=== PATIENT | male | born 1985 | race Caucasian/White ===

== ENCOUNTER 2017-08-27 20:11 | Emergency (ER) | payer MEDICAID | END 2017-08-28 17:50 | disposition home or self-care (01) | LOC: E/R 08-28 17:50 | DX: J20.9 Acute bronchitis, unspecified (principal); I50.9 Heart failure, unspecified | CPT/HCPCS: 99284; Z7502 ==

== ENCOUNTER 2017-09-10 10:35 | Emergency (ER) | payer MEDICAID | END 2017-09-10 20:20 | disposition home or self-care (01) | LOC: E/R 20:20 | DX: R05 Cough (principal); I50.9 Heart failure, unspecified | CPT/HCPCS: 99283; Z7502 ==

== ENCOUNTER 2017-09-12 02:44 | Inpatient (IN) | payer MEDICAID ==
[2017-09-12] MEDS: ACETAMINOPHEN 325 MG TAB PO (05:08)
[2017-09-12] MEDS: SOD CHLORIDE 0.9% 500 ML IV (05:09)
[2017-09-12] MEDS: CEFTRIAXONE 1 GM/50 ML (PMX) 50 ML IVPB (05:09)
[2017-09-12 05:35] LABS: ADD MAN DIFF? NO
[2017-09-12] MEDS: AZITHROMYCIN 500MG/NS (PMX) 250 ML IV (05:36)
[2017-09-12 05:39] LABS: WHITE BLOOD COUNT 12.7 10^3/ul (4.8-10.8)
[2017-09-12 05:39] LABS: BASOPHIL # 0.1 10^3/ul (0.0-0.1); BASOPHILS % 0.4 % (0.0-2.0); EOSINOPHILS # 0.1 10^3/ul (0.0-0.5); EOSINOPHILS % 0.6 % (0.0-7.0); HEMATOCRIT 46.1 % (42.0-52.0); HEMOGLOBIN 15.2 g/dl (14.0-18.0); LYMPHOCYTES # 1.7 10^3/ul (0.8-2.9); LYMPHOCYTES % 13.4 % (15.0-51.0); MEAN CORPUSCULAR HEMOGLOBIN 31.7 pg (29.0-33.0); MEAN CORPUSCULAR VOLUME 96.2 fl (82.0-101.0); MEAN PLATELET VOLUME 10.1 fl (7.4-10.4); MONOCYTE # 1.5 10^3/ul (0.3-0.9); MONOCYTES % 11.8 % (0.0-11.0); NEUTROPHIL # 9.4 10^3/ul (1.6-7.5); NEUTROPHILS % 73.4 % (39.0-77.0); PLATELET COUNT 235 10^3/UL (140-415); RED BLOOD COUNT 4.79 10^6/ul (4.70-6.10); RED CELL DISTRIBUTION WIDTH 13.5 % (11.5-14.5)
[2017-09-12 06:05] LABS: ALANINE AMINOTRANSFERASE 42 IU/L (13-69); ALBUMIN 4.3 g/dl (3.3-4.9); ALBUMIN/GLOBULIN RATIO 1.34; ALKALINE PHOSPHATASE 113 IU/L (42-121); ANION GAP 14 (8-16); ASPARTATE AMINO TRANSFERASE 37 IU/L (15-46); BILIRUBIN,INDIRECT 0.7 mg/dl (0-1.1); BILIRUBIN,TOTAL 0.7 mg/dl (0.2-1.3); BLOOD UREA NITROGEN 15 mg/dl (7-20); CALCIUM 9.2 mg/dl (8.4-10.2); CARBON DIOXIDE 31 mmol/L (21-31); CHLORIDE 98 mmol/L (97-110); CREATININE 1.06 mg/dl (0.61-1.24); GLUCOSE 107 mg/dl (70-220); POTASSIUM 3.7 mmol/L (3.5-5.1); SODIUM 139 mmol/L (135-144); TOTAL PROTEIN 7.5 g/dl (6.1-8.1)
[2017-09-12 06:06] LABS: LACTIC ACID 1.5 mmol/L (0.5-2.0)
[2017-09-12 06:10] LABS: INR 0.96; PROTIME 12.9 Sec (11.9-14.9)
[2017-09-12 06:11] LABS: PARTIAL THROMBOPLASTIN TIME 27.3 Sec (25.0-35.0)
[2017-09-12] MEDS ORDERED: ACETAMINOPHEN 325 MG TAB PO ×2 (07:00→07:30)
[2017-09-12] MEDS ORDERED: ONDANSETRON 4 MG INJ IV (07:30)
[2017-09-12] MEDS ORDERED: MAGNESIUM HYDROXIDE 30ML CUP PO (07:30)
[2017-09-12] MEDS ORDERED: NA PHOSPHATE/BIPHOS 133 ML ENEMA PR (07:30)
[2017-09-12] MEDS ORDERED: ALBUTEROL/IPRATROPIUM (NEB) 3 ML AMP HHN ×2 (07:30→11:00)
[2017-09-12] MEDS ORDERED: LORAZEPAM 2 MG INJ IV (07:30)
[2017-09-12] MEDS ORDERED: NACL 0.9% 3 ML SYG IV (07:30)
[2017-09-12] MEDS ORDERED: hydrALAzine 20 MG INJ IV (07:30)
[2017-09-12] MEDS ORDERED: VANCOMYCIN IV PER PHARMACY XX (07:30)
[2017-09-12] MEDS ORDERED: NITROGLYCERIN (SL) 0.4 MG TAB SL (07:30)
[2017-09-12] MEDS ORDERED: HYDROCODONE/APAP (5/325) TAB PO (07:30)
[2017-09-12] MEDS: ALBUTEROL 0.083% (NEB) 2.5 MG/3 ML AMP NEB (08:10)
[2017-09-12] MEDS: ONDANSETRON 4 MG INJ IV (08:34)
[2017-09-12] MEDS: morphine 2 MG INJ IV (08:35)
[2017-09-12 10:27] LABS: FREE T4 (FREE THYROXINE) 1.06 ng/dl (0.79-2.35)
[2017-09-12] MEDS: SOD CHLORIDE 0.45% 1,000 ML IV (10:48)
[2017-09-12] MEDS: HEPARIN 5,000 UNIT/0.5 ML VIAL SC ×2 (10:53→20:10)
[2017-09-12 11:28] LABS: LACTIC ACID 1.3 mmol/L (0.5-2.0)
[2017-09-12] MEDS: FLUTICASONE 0.05% 16 GM NAS SPRAY NASAL (12:10)
[2017-09-12] MEDS: PANTOPRAZOLE (EC) 40 MG TAB PO (12:10)
[2017-09-12] MEDS: IBUPROFEN 600 MG TAB PO ×3 (12:10→23:22)
[2017-09-12] MEDS: FUROSEMIDE 40 MG INJ IV (12:11)
[2017-09-12] MEDS: PIPER-TAZO 3.375 GM IV (PMX) 100 ML IVPB ×3 (12:13→23:20)
[2017-09-12 12:21] LABS: LACTIC ACID 1.2 mmol/L (0.5-2.0)
[2017-09-12 12:34] LABS: B-TYPE NATRIURETIC PEPTIDE 2300 PG/ML (0-125)
[2017-09-12] MEDS: VANCOMYCIN 1 GM 250 ML IVPB ×2 (16:31→17:00)
[2017-09-13] MEDS: VANCOMYCIN 1 GM 250 ML IVPB ×2 (01:21→11:00)
[2017-09-13] MEDS: IBUPROFEN 600 MG TAB PO ×4 (05:35→23:45)
[2017-09-13] MEDS: PIPER-TAZO 3.375 GM IV (PMX) 100 ML IVPB ×2 (05:35→12:31)
[2017-09-13] MEDS: PANTOPRAZOLE (EC) 40 MG TAB PO (05:35)
[2017-09-13] MEDS: FLUTICASONE 0.05% 16 GM NAS SPRAY NASAL (09:28)
[2017-09-13] MEDS: FUROSEMIDE 40 MG INJ IV (09:28)
[2017-09-13] MEDS: DOCUSATE SODIUM 100 MG CAP PO (09:28)
[2017-09-13] MEDS: BENAZEPRIL 20 MG TAB PO (09:28)
[2017-09-13 09:29] LABS: ADD MAN DIFF? NO
[2017-09-13 09:34] LABS: BASOPHILS % 0.4 % (0.0-2.0); EOSINOPHILS # 0.3 10^3/ul (0.0-0.5); EOSINOPHILS % 3.4 % (0.0-7.0); HEMATOCRIT 45.8 % (42.0-52.0); HEMOGLOBIN 14.9 g/dl (14.0-18.0); LYMPHOCYTES # 1.1 10^3/ul (0.8-2.9); MEAN CORPUSCULAR HEMOGLOBIN 31.4 pg (29.0-33.0); MEAN CORPUSCULAR HGB CONC 32.5 g/dl (32.0-37.0); MEAN CORPUSCULAR VOLUME 96.4 fl (82.0-101.0); MEAN PLATELET VOLUME 10.3 fl (7.4-10.4); MONOCYTES % 9.7 % (0.0-11.0); NEUTROPHIL # 7.3 10^3/ul (1.6-7.5); NEUTROPHILS % 75.2 % (39.0-77.0); PLATELET COUNT 203 10^3/UL (140-415); RED BLOOD COUNT 4.75 10^6/ul (4.70-6.10); RED CELL DISTRIBUTION WIDTH 13.5 % (11.5-14.5)
[2017-09-13 09:34] LABS: WHITE BLOOD COUNT 9.8 10^3/ul (4.8-10.8)
[2017-09-13] MEDS: HEPARIN 5,000 UNIT/0.5 ML VIAL SC ×2 (09:36→20:21)
[2017-09-13] MEDS: GUAIFENESIN/DM 5ML CUP PO (09:36)
[2017-09-13 09:50] LABS: HEMOGLOBIN A1C 5.6 % (0-5.9)
[2017-09-13 10:00] LABS: CHOL/HDL RATIO 3.7 RATIO; HDL CHOLESTEROL 43 mg/dl (28-63); LDL CHOLESTEROL,CALCULATED 104 mg/dl; TRIGLYCERIDES 66 mg/dl (0-149)
[2017-09-13 10:00] LABS: CHOLESTEROL 160 mg/dl (100-200)
[2017-09-13 10:31] LABS: THYROID STIMULATING HORMONE 0.366 MIU/L (0.465-4.680)
[2017-09-13 11:20] LABS: ANION GAP 12 (8-16); BLOOD UREA NITROGEN 15 mg/dl (7-20); CALCIUM 9.2 mg/dl (8.4-10.2); CARBON DIOXIDE 27 mmol/L (21-31); CHLORIDE 105 mmol/L (97-110); CREATININE 0.89 mg/dl (0.61-1.24); GLUCOSE 125 mg/dl (70-220); MAGNESIUM 1.9 mg/dl (1.7-2.5); PHOSPHORUS 2.6 mg/dl (2.5-4.9); POTASSIUM 4.1 mmol/L (3.5-5.1); SODIUM 140 mmol/L (135-144)
[2017-09-13] MEDS: INFLUENZA VIRUS VACCINE 0.5 ML SYG IM* (12:35)
[2017-09-13] MEDS: FUROSEMIDE 40 MG TAB PO (20:06)
[2017-09-14] MEDS: IBUPROFEN 600 MG TAB PO ×4 (05:10→23:16)
[2017-09-14] MEDS: FUROSEMIDE 40 MG TAB PO ×2 (05:10→17:47)
[2017-09-14] MEDS ORDERED: FUROSEMIDE 40 MG INJ IV (06:00)
[2017-09-14 08:08] LABS: ADD MAN DIFF? NO
[2017-09-14 08:28] LABS: WHITE BLOOD COUNT 4.4 10^3/ul (4.8-10.8)
[2017-09-14 08:28] LABS: BASOPHILS % 0.7 % (0.0-2.0); EOSINOPHILS # 0.3 10^3/ul (0.0-0.5); EOSINOPHILS % 7.4 % (0.0-7.0); HEMATOCRIT 46.3 % (42.0-52.0); HEMOGLOBIN 15.2 g/dl (14.0-18.0); LYMPHOCYTES # 1.5 10^3/ul (0.8-2.9); LYMPHOCYTES % 33.3 % (15.0-51.0); MEAN CORPUSCULAR HEMOGLOBIN 31.3 pg (29.0-33.0); MEAN CORPUSCULAR HGB CONC 32.8 g/dl (32.0-37.0); MEAN CORPUSCULAR VOLUME 95.5 fl (82.0-101.0); MEAN PLATELET VOLUME 10.2 fl (7.4-10.4); MONOCYTE # 0.8 10^3/ul (0.3-0.9); MONOCYTES % 17.1 % (0.0-11.0); NEUTROPHIL # 1.8 10^3/ul (1.6-7.5); PLATELET COUNT 212 10^3/UL (140-415); RED BLOOD COUNT 4.85 10^6/ul (4.70-6.10); RED CELL DISTRIBUTION WIDTH 13.7 % (11.5-14.5)
[2017-09-14 08:43] LABS: ANION GAP 14 (8-16); BLOOD UREA NITROGEN 15 mg/dl (7-20); CARBON DIOXIDE 31 mmol/L (21-31); CHLORIDE 101 mmol/L (97-110); CREATININE 0.85 mg/dl (0.61-1.24); GLUCOSE 85 mg/dl (70-220); POTASSIUM 3.5 mmol/L (3.5-5.1); SODIUM 142 mmol/L (135-144)
[2017-09-14 08:44] LABS: PHOSPHORUS 2.8 mg/dl (2.5-4.9)
[2017-09-14 08:44] LABS: MAGNESIUM 1.8 mg/dl (1.7-2.5)
[2017-09-14] MEDS: BENAZEPRIL 20 MG TAB PO (08:55)
[2017-09-14] MEDS: FLUTICASONE 0.05% 16 GM NAS SPRAY NASAL (08:55)
[2017-09-14] MEDS: HEPARIN 5,000 UNIT/0.5 ML VIAL SC ×2 (08:57→20:13)
[2017-09-14] MEDS: GUAIFENESIN/DM 5ML CUP PO (17:47)
[2017-09-15] MEDS: FUROSEMIDE 40 MG TAB PO (05:03)
[2017-09-15] MEDS: IBUPROFEN 600 MG TAB PO (05:03)
[2017-09-15] MEDS: HEPARIN 5,000 UNIT/0.5 ML VIAL SC (09:00)
[2017-09-15] MEDS: FLUTICASONE 0.05% 16 GM NAS SPRAY NASAL (09:10)
[2017-09-15] MEDS: BENAZEPRIL 20 MG TAB PO (09:10)
[2017-09-15] MEDS: GUAIFENESIN/DM 5ML CUP PO (09:15)
[2017-09-15 09:42] LABS: ADD MAN DIFF? NO
[2017-09-15 09:49] LABS: BASOPHILS % 0.7 % (0.0-2.0); EOSINOPHILS # 0.3 10^3/ul (0.0-0.5); EOSINOPHILS % 6.3 % (0.0-7.0); HEMATOCRIT 48.2 % (42.0-52.0); LYMPHOCYTES # 1.5 10^3/ul (0.8-2.9); LYMPHOCYTES % 37.3 % (15.0-51.0); MEAN CORPUSCULAR HEMOGLOBIN 31.7 pg (29.0-33.0); MEAN CORPUSCULAR HGB CONC 33.2 g/dl (32.0-37.0); MEAN CORPUSCULAR VOLUME 95.6 fl (82.0-101.0); MEAN PLATELET VOLUME 10.4 fl (7.4-10.4); MONOCYTE # 0.6 10^3/ul (0.3-0.9); MONOCYTES % 13.4 % (0.0-11.0); NEUTROPHIL # 1.7 10^3/ul (1.6-7.5); NEUTROPHILS % 41.8 % (39.0-77.0); PLATELET COUNT 245 10^3/UL (140-415); RED BLOOD COUNT 5.04 10^6/ul (4.70-6.10); RED CELL DISTRIBUTION WIDTH 13.2 % (11.5-14.5)
[2017-09-15 09:49] LABS: WHITE BLOOD COUNT 4.1 10^3/ul (4.8-10.8)
[2017-09-15 10:07] LABS: PHOSPHORUS 3.1 mg/dl (2.5-4.9)
[2017-09-15 10:07] LABS: MAGNESIUM 1.7 mg/dl (1.7-2.5)
[2017-09-15 10:10] LABS: ANION GAP 12 (8-16); BLOOD UREA NITROGEN 17 mg/dl (7-20); CALCIUM 9.3 mg/dl (8.4-10.2); CARBON DIOXIDE 30 mmol/L (21-31); CHLORIDE 102 mmol/L (97-110); GLUCOSE 85 mg/dl (70-220); POTASSIUM 3.9 mmol/L (3.5-5.1); SODIUM 140 mmol/L (135-144)
== END 2017-09-15 12:51 | disposition home or self-care (01) | DRG 152 ==
LOC: MS4 09:13 → E/R 02:44 → MS4 06:56
DX: J06.9 Acute upper respiratory infection, unspecified (principal); I50.23 Acute on chronic systolic (congestive) heart failure; I11.0 Hypertensive heart disease with heart failure; E05.80 Other thyrotoxicosis without thyrotoxic crisis or storm; F15.11 Other stimulant abuse, in remission; I25.5 Ischemic cardiomyopathy; J40 Bronchitis, not specified as acute or chronic; Z87.891 Personal history of nicotine dependence
CPT/HCPCS: 36415; 71045; 80048; 80053; 80061; 83036; 83605; 83735; 83880; 84100; 84439; 84443; 84484; 85025; 85610; 85730; 87040; 87400; 90686; 93005; 93306; 94664; 96374; 96375; 99291-25; G0378

== ENCOUNTER 2018-06-20 19:32 | Emergency (ER) | payer MEDICAID ==
[2018-06-20 21:03] LABS: ADD MAN DIFF? NO
[2018-06-20 21:04] LABS: BASOPHILS % 0.5 % (0.0-2.0); EOSINOPHILS # 0.1 10^3/ul (0.0-0.5); EOSINOPHILS % 1.4 % (0.0-7.0); HEMATOCRIT 41.6 % (42.0-52.0); HEMOGLOBIN 14.1 g/dl (14.0-18.0); LYMPHOCYTES # 1.5 10^3/ul (0.8-2.9); LYMPHOCYTES % 23.1 % (15.0-51.0); MEAN CORPUSCULAR HEMOGLOBIN 33.1 pg (29.0-33.0); MEAN CORPUSCULAR HGB CONC 33.9 g/dl (32.0-37.0); MEAN CORPUSCULAR VOLUME 97.7 fl (82.0-101.0); MEAN PLATELET VOLUME 9.4 fl (7.4-10.4); MONOCYTE # 0.8 10^3/ul (0.3-0.9); MONOCYTES % 11.4 % (0.0-11.0); NEUTROPHIL # 4.2 10^3/ul (1.6-7.5); NEUTROPHILS % 63.1 % (39.0-77.0); PLATELET COUNT 240 10^3/UL (140-415); RED BLOOD COUNT 4.26 10^6/ul (4.70-6.10); RED CELL DISTRIBUTION WIDTH 13.5 % (11.5-14.5)
[2018-06-20 21:04] LABS: WHITE BLOOD COUNT 6.6 10^3/ul (4.8-10.8)
[2018-06-20 21:11] LABS: ADD UMIC YES; UR ASCORBIC ACID NEGATIVE (NEGATIVE); UR BILIRUBIN (Dip) NEGATIVE (NEGATIVE); UR BLOOD (Dip) NEGATIVE (NEGATIVE); UR CLARITY CLEAR (CLEAR); UR COLOR YELLOW (YELLOW); UR GLUCOSE (Dip) NEGATIVE (NEGATIVE); UR KETONES (Dip) NEGATIVE (NEGATIVE); UR LEUKOCYTE ESTERASE (Dip) NEGATIVE Leu/ul (NEGATIVE); UR MUCUS FEW /HPF (NONE SEEN); UR NITRITE (Dip) NEGATIVE (NEGATIVE); UR RBC 0 /HPF (0-5); UR SPECIFIC GRAVITY (Dip) 1.013 (1.003-1.030); UR TOTAL PROTEIN (Dip) 2+ mg/dl (NEGATIVE); UR UROBILINOGEN (Dip) 2+ mg/dL (NEGATIVE); UR WBC 1 /HPF (0-5)
[2018-06-20 21:22] LABS: ALANINE AMINOTRANSFERASE 61 IU/L (13-69); ALBUMIN 3.7 g/dl (3.3-4.9); ALBUMIN/GLOBULIN RATIO 1.32; ALKALINE PHOSPHATASE 93 IU/L (42-121); ANION GAP 9 (5-13); ASPARTATE AMINO TRANSFERASE 57 IU/L (15-46); BILIRUBIN,INDIRECT 1.7 mg/dl (0-1.1); BILIRUBIN,TOTAL 1.7 mg/dl (0.2-1.3); BLOOD UREA NITROGEN 17 mg/dl (7-20); CALCIUM 8.8 mg/dl (8.4-10.2); CARBON DIOXIDE 24 mmol/L (21-31); CHLORIDE 102 mmol/L (97-110); Estimated GFR > 60 mL/min (>60); GLUCOSE 95 mg/dl (70-220); LIPASE 19 U/L (23-300); SODIUM 135 mmol/L (135-144); TOTAL PROTEIN 6.5 g/dl (6.1-8.1)
[2018-06-20 21:33] LABS: TROPONIN-I 0.018 ng/ml (0.000-0.120)
[2018-06-20] MEDS: FUROSEMIDE 40 MG INJ IV (22:58)
== END 2018-06-21 00:17 | disposition home or self-care (01) ==
LOC: E/R 06-21 00:17
DX: I50.23 Acute on chronic systolic (congestive) heart failure (principal); R40.2142 Coma scale, eyes open, spontaneous, at arrival to emergency department; R40.2252 Coma scale, best verbal response, oriented, at arrival to emergency department; R40.2362 Coma scale, best motor response, obeys commands, at arrival to emergency department; Z87.891 Personal history of nicotine dependence
CPT/HCPCS: 36415; 71045; 80053; 81001; 82962; 83690; 84484; 85025; 93005; 96374; 99285-25

== ENCOUNTER 2018-07-24 14:55 | Emergency (ER) | payer MEDICAID ==
[2018-07-24] MEDS: KETOROLAC 30 MG INJ IM (15:39)
== END 2018-07-24 17:06 | disposition home or self-care (01) ==
LOC: FTE 14:55
DX: J06.9 Acute upper respiratory infection, unspecified (principal); I11.0 Hypertensive heart disease with heart failure; I50.9 Heart failure, unspecified; Z87.891 Personal history of nicotine dependence
CPT/HCPCS: 71046; 87400; 96372; 99284-25

== ENCOUNTER 2018-08-31 21:49 | Emergency (ER) | payer MEDICAID ==
[2018-09-01] MEDS: ALBUTEROL 0.083% (NEB) 2.5 MG/3 ML AMP NEB (00:09)
[2018-09-01] MEDS: IPRATROPIUM (NEB) 0.5 MG/2.5 ML AMP NEB (00:09)
== END 2018-09-01 01:47 | disposition home or self-care (01) ==
LOC: FTE 21:49
DX: J20.9 Acute bronchitis, unspecified (principal); I50.9 Heart failure, unspecified; I11.0 Hypertensive heart disease with heart failure; Z87.891 Personal history of nicotine dependence
CPT/HCPCS: 71045; 87400; 94664; 99284-25

== ENCOUNTER 2018-10-17 19:00 | Inpatient (IN) | payer MEDICAID ==
[2018-10-18] MEDS: FUROSEMIDE 40 MG INJ IV ×2 (00:03→08:54)
[2018-10-18 00:04] LABS: ADD MAN DIFF? NO
[2018-10-18 00:07] LABS: BASOPHIL # 0.1 10^3/ul (0.0-0.1); BASOPHILS % 0.7 % (0.0-2.0); EOSINOPHILS # 0.2 10^3/ul (0.0-0.5); EOSINOPHILS % 2.9 % (0.0-7.0); HEMATOCRIT 42.8 % (42.0-52.0); HEMOGLOBIN 13.8 g/dl (14.0-18.0); LYMPHOCYTES # 1.4 10^3/ul (0.8-2.9); LYMPHOCYTES % 20.7 % (15.0-51.0); MEAN CORPUSCULAR HEMOGLOBIN 31.7 pg (29.0-33.0); MEAN CORPUSCULAR HGB CONC 32.2 g/dl (32.0-37.0); MEAN CORPUSCULAR VOLUME 98.2 fl (82.0-101.0); MEAN PLATELET VOLUME 8.8 fl (7.4-10.4); MONOCYTE # 0.8 10^3/ul (0.3-0.9); MONOCYTES % 12.2 % (0.0-11.0); NEUTROPHIL # 4.3 10^3/ul (1.6-7.5); NEUTROPHILS % 63.1 % (39.0-77.0); PLATELET COUNT 346 10^3/UL (140-415); RED BLOOD COUNT 4.36 10^6/ul (4.70-6.10)
[2018-10-18 00:07] LABS: WHITE BLOOD COUNT 6.8 10^3/ul (4.8-10.8)
[2018-10-18 00:29] LABS: ALANINE AMINOTRANSFERASE 57 IU/L (13-69); ALBUMIN 3.4 g/dl (3.3-4.9); ALBUMIN/GLOBULIN RATIO 1.06; ALKALINE PHOSPHATASE 138 IU/L (42-121); ANION GAP 11 (5-13); ASPARTATE AMINO TRANSFERASE 68 IU/L (15-46); BILIRUBIN,INDIRECT 0.9 mg/dl (0-1.1); BILIRUBIN,TOTAL 0.9 mg/dl (0.2-1.3); BLOOD UREA NITROGEN 18 mg/dl (7-20); CALCIUM 8.9 mg/dl (8.4-10.2); CARBON DIOXIDE 27 mmol/L (21-31); CHLORIDE 100 mmol/L (97-110); CREATININE 1.16 mg/dl (0.61-1.24); Estimated GFR > 60 mL/min (>60); GLUCOSE 84 mg/dl (70-220); LIPASE 53 U/L (23-300); POTASSIUM 3.4 mmol/L (3.5-5.1); SODIUM 138 mmol/L (135-144); TOTAL PROTEIN 6.6 g/dl (6.1-8.1)
[2018-10-18 00:37] LABS: INR 1.07; PT RATIO 1.1
[2018-10-18 00:38] LABS: PARTIAL THROMBOPLASTIN TIME 26.7 Sec (23.0-35.0)
[2018-10-18 00:40] LABS: B-TYPE NATRIURETIC PEPTIDE 2970 PG/ML (0-125)
[2018-10-18] MEDS ORDERED: ALBUTEROL/IPRATROPIUM (NEB) 3 ML AMP HHN (07:00)
[2018-10-18] MEDS ORDERED: ONDANSETRON 4 MG INJ IV (07:00)
[2018-10-18] MEDS ORDERED: ACETAMINOPHEN 325 MG TAB PO (07:00)
[2018-10-18] MEDS ORDERED: NACL 0.9% 3 ML SYG IV (07:00)
[2018-10-18] MEDS ORDERED: NITROGLYCERIN (SL) 0.4 MG TAB SL (07:00)
[2018-10-18 07:54] LABS: ADD MAN DIFF? NO
[2018-10-18 07:56] LABS: BASOPHIL # 0.1 10^3/ul (0.0-0.1); BASOPHILS % 0.7 % (0.0-2.0); EOSINOPHILS # 0.2 10^3/ul (0.0-0.5); EOSINOPHILS % 2.1 % (0.0-7.0); HEMATOCRIT 42.7 % (42.0-52.0); LYMPHOCYTES % 12.2 % (15.0-51.0); MEAN CORPUSCULAR HEMOGLOBIN 32.3 pg (29.0-33.0); MEAN CORPUSCULAR HGB CONC 32.8 g/dl (32.0-37.0); MEAN CORPUSCULAR VOLUME 98.4 fl (82.0-101.0); MEAN PLATELET VOLUME 8.8 fl (7.4-10.4); MONOCYTE # 0.7 10^3/ul (0.3-0.9); MONOCYTES % 8.8 % (0.0-11.0); NEUTROPHIL # 6.3 10^3/ul (1.6-7.5); NEUTROPHILS % 75.8 % (39.0-77.0); PLATELET COUNT 324 10^3/UL (140-415); RED BLOOD COUNT 4.34 10^6/ul (4.70-6.10); RED CELL DISTRIBUTION WIDTH 15.1 % (11.5-14.5)
[2018-10-18 07:56] LABS: WHITE BLOOD COUNT 8.3 10^3/ul (4.8-10.8)
[2018-10-18 08:04] LABS: HEMOGLOBIN A1C 5.7 % (0-5.9)
[2018-10-18 08:14] LABS: CREATINE KINASE 325 IU/L (23-200)
[2018-10-18 08:18] LABS: ANION GAP 9 (5-13); BLOOD UREA NITROGEN 18 mg/dl (7-20); CARBON DIOXIDE 28 mmol/L (21-31); CHLORIDE 102 mmol/L (97-110); CREATININE 1.05 mg/dl (0.61-1.24); Estimated GFR > 60 mL/min (>60); GLUCOSE 102 mg/dl (70-220); POTASSIUM 3.6 mmol/L (3.5-5.1); SODIUM 139 mmol/L (135-144)
[2018-10-18 08:19] LABS: CHOLESTEROL 138 mg/dl (100-200)
[2018-10-18 08:19] LABS: CHOL/HDL RATIO 3.7 RATIO; HDL CHOLESTEROL 37 mg/dl (28-63); LDL CHOLESTEROL,CALCULATED 88 mg/dl; TRIGLYCERIDES 67 mg/dl (0-149)
[2018-10-18 08:25] LABS: CK INDEX 1.4; TROPONIN-I 0.083 ng/ml (0.000-0.120)
[2018-10-18 08:32] LABS: CK-MB 4.71 ng/ml (0.0-2.4)
[2018-10-18 08:44] LABS: THYROID STIMULATING HORMONE 0.873 MIU/L (0.465-4.680)
[2018-10-18] MEDS: BENAZEPRIL 20 MG TAB PO (08:53)
[2018-10-18] MEDS: HEPARIN 5,000 UNIT/1 ML VIAL SC ×2 (09:05→21:01)
[2018-10-18 14:48] LABS: CREATINE KINASE 226 IU/L (23-200)
[2018-10-18 15:02] LABS: CK INDEX 1.4; TROPONIN-I 0.054 ng/ml (0.000-0.120)
[2018-10-18 15:17] LABS: CK-MB 3.27 ng/ml (0.0-2.4)
[2018-10-19 05:59] LABS: ADD MAN DIFF? NO
[2018-10-19 06:12] LABS: WHITE BLOOD COUNT 7.1 10^3/ul (4.8-10.8)
[2018-10-19 06:12] LABS: BASOPHILS % 0.6 % (0.0-2.0); EOSINOPHILS # 0.4 10^3/ul (0.0-0.5); HEMATOCRIT 42.6 % (42.0-52.0); HEMOGLOBIN 13.9 g/dl (14.0-18.0); LYMPHOCYTES # 1.1 10^3/ul (0.8-2.9); LYMPHOCYTES % 14.9 % (15.0-51.0); MEAN CORPUSCULAR HEMOGLOBIN 32.3 pg (29.0-33.0); MEAN CORPUSCULAR HGB CONC 32.6 g/dl (32.0-37.0); MEAN CORPUSCULAR VOLUME 98.8 fl (82.0-101.0); MEAN PLATELET VOLUME 9.3 fl (7.4-10.4); MONOCYTE # 0.8 10^3/ul (0.3-0.9); MONOCYTES % 11.5 % (0.0-11.0); NEUTROPHIL # 4.8 10^3/ul (1.6-7.5); NEUTROPHILS % 67.6 % (39.0-77.0); PLATELET COUNT 364 10^3/UL (140-415); RED BLOOD COUNT 4.31 10^6/ul (4.70-6.10); RED CELL DISTRIBUTION WIDTH 14.9 % (11.5-14.5)
[2018-10-19 06:34] LABS: ALANINE AMINOTRANSFERASE 47 IU/L (13-69); ALKALINE PHOSPHATASE 144 IU/L (42-121); ANION GAP 7 (5-13); ASPARTATE AMINO TRANSFERASE 52 IU/L (15-46); BILIRUBIN,INDIRECT 0.6 mg/dl (0-1.1); BILIRUBIN,TOTAL 0.6 mg/dl (0.2-1.3); BLOOD UREA NITROGEN 21 mg/dl (7-20); CALCIUM 9.1 mg/dl (8.4-10.2); CARBON DIOXIDE 27 mmol/L (21-31); CHLORIDE 105 mmol/L (97-110); CREATININE 1.16 mg/dl (0.61-1.24); Estimated GFR > 60 mL/min (>60); GLUCOSE 117 mg/dl (70-220); MAGNESIUM 1.9 mg/dl (1.7-2.5); POTASSIUM 3.8 mmol/L (3.5-5.1); SODIUM 139 mmol/L (135-144)
[2018-10-19] MEDS: BENAZEPRIL 20 MG TAB PO (08:15)
[2018-10-19] MEDS: FUROSEMIDE 40 MG INJ IV (08:16)
[2018-10-19] MEDS: HEPARIN 5,000 UNIT/1 ML VIAL SC ×2 (08:20→21:04)
[2018-10-20] MEDS: BENAZEPRIL 20 MG TAB PO (08:39)
[2018-10-20] MEDS: FUROSEMIDE 40 MG INJ IV (08:40)
[2018-10-20] MEDS: HEPARIN 5,000 UNIT/1 ML VIAL SC ×2 (08:49→21:44)
[2018-10-21] MEDS: FUROSEMIDE 40 MG INJ IV (09:38)
[2018-10-21] MEDS: BENAZEPRIL 20 MG TAB PO (09:38)
[2018-10-21] MEDS: HEPARIN 5,000 UNIT/1 ML VIAL SC (09:44)
== END 2018-10-21 13:05 | disposition home or self-care (01) | DRG 293 ==
LOC: FTE 19:00 → 6WM 10-18 02:23
DX: I11.0 Hypertensive heart disease with heart failure (principal); I08.1 Rheumatic disorders of both mitral and tricuspid valves; I27.20 Pulmonary hypertension, unspecified; I42.9 Cardiomyopathy, unspecified; I50.23 Acute on chronic systolic (congestive) heart failure; Z87.891 Personal history of nicotine dependence
CPT/HCPCS: 36415; 71045; 80048; 80053; 80061; 82550; 82553; 83036; 83690; 83735; 83880; 84443; 84484; 85025; 85610; 85730; 93005; 93306; 96374; 97162; 99285-25

== ENCOUNTER 2019-03-08 00:37 | Inpatient (IN) | payer MEDICAID, OTHER ==
[2019-03-08 01:16] LABS: ADD MAN DIFF? NO
[2019-03-08 01:19] LABS: BASOPHILS % 0.5 % (0.0-2.0); EOSINOPHILS # 0.1 10^3/ul (0.0-0.5); EOSINOPHILS % 0.7 % (0.0-7.0); HEMATOCRIT 46.2 % (42.0-52.0); HEMOGLOBIN 15.2 g/dl (14.0-18.0); LYMPHOCYTES # 0.8 10^3/ul (0.8-2.9); LYMPHOCYTES % 9.4 % (15.0-51.0); MEAN CORPUSCULAR HEMOGLOBIN 33.9 pg (29.0-33.0); MEAN CORPUSCULAR HGB CONC 32.9 g/dl (32.0-37.0); MEAN CORPUSCULAR VOLUME 102.9 fl (82.0-101.0); MEAN PLATELET VOLUME 9.6 fl (7.4-10.4); MONOCYTE # 0.7 10^3/ul (0.3-0.9); MONOCYTES % 7.7 % (0.0-11.0); NEUTROPHIL # 7.1 10^3/ul (1.6-7.5); NEUTROPHILS % 81.2 % (39.0-77.0); PLATELET COUNT 252 10^3/UL (140-415); RED BLOOD COUNT 4.49 10^6/ul (4.70-6.10); RED CELL DISTRIBUTION WIDTH 14.6 % (11.5-14.5)
[2019-03-08 01:19] LABS: WHITE BLOOD COUNT 8.8 10^3/ul (4.8-10.8)
[2019-03-08 01:53] LABS: ALANINE AMINOTRANSFERASE 39 IU/L (13-69); ALBUMIN 4.3 g/dl (3.3-4.9); ALBUMIN/GLOBULIN RATIO 1.26; ALKALINE PHOSPHATASE 121 IU/L (42-121); ANION GAP 11 (5-13); ASPARTATE AMINO TRANSFERASE 52 IU/L (15-46); BILIRUBIN,INDIRECT 0.9 mg/dl (0-1.1); BILIRUBIN,TOTAL 0.9 mg/dl (0.2-1.3); BLOOD UREA NITROGEN 9 mg/dl (7-20); CALCIUM 9.2 mg/dl (8.4-10.2); CARBON DIOXIDE 30 mmol/L (21-31); CHLORIDE 102 mmol/L (97-110); CREATININE 0.97 mg/dl (0.61-1.24); Estimated GFR > 60 mL/min (>60); GLUCOSE 123 mg/dl (70-220); POTASSIUM 3.6 mmol/L (3.5-5.1); SODIUM 143 mmol/L (135-144); TOTAL PROTEIN 7.7 g/dl (6.1-8.1)
[2019-03-08 02:04] LABS: B-TYPE NATRIURETIC PEPTIDE 1800 PG/ML (0-125); TROPONIN-I 0.065 ng/ml (0.000-0.120)
[2019-03-08] MEDS ORDERED: ONDANSETRON 4 MG INJ IV ×2 (03:00→06:00)
[2019-03-08] MEDS ORDERED: ACETAMINOPHEN 325 MG TAB PO ×2 (03:00→06:00)
[2019-03-08] MEDS ORDERED: NITROGLYCERIN (SL) 0.4 MG TAB SL (06:00)
[2019-03-08] MEDS ORDERED: IPRATROPIUM (NEB) 0.5 MG/2.5 ML AMP NEB (06:00)
[2019-03-08] MEDS ORDERED: NACL 0.9% 3 ML SYG IV (06:00)
[2019-03-08 07:45] LABS: CREATINE KINASE 209 IU/L (23-200)
[2019-03-08 07:58] LABS: CK-MB 2.19 ng/ml (0.0-2.4); TROPONIN-I 0.065 ng/ml (0.000-0.120)
[2019-03-08] MEDS: FUROSEMIDE 40 MG TAB PO (08:42)
[2019-03-08] MEDS: ASPIRIN 81 MG TAB PO (08:42)
[2019-03-08] MEDS: BENAZEPRIL 20 MG TAB PO (08:43)
[2019-03-08] MEDS: ENOXAPARIN 40 MG/0.4 ML SYG SC (08:49)
[2019-03-08 11:44] LABS: MAGNESIUM 1.8 mg/dl (1.7-2.5)
[2019-03-08 11:44] LABS: CREATINE KINASE 153 IU/L (23-200)
[2019-03-08 11:56] LABS: CK INDEX 1.2; CK-MB 1.84 ng/ml (0.0-2.4); TROPONIN-I 0.056 ng/ml (0.000-0.120)
[2019-03-08] MEDS: POTASSIUM CHLORIDE (SR) 20 MEQ TAB PO (12:48)
[2019-03-08] MEDS: FUROSEMIDE 40 MG INJ IV ×2 (17:35→20:19)
[2019-03-08] MEDS ORDERED: FUROSEMIDE 40 MG INJ IV (18:00)
[2019-03-08 21:34] LABS: BARBITURATES Negative (NEGATIVE); BENZODIAZEPINES Negative (NEGATIVE); CANNABINOIDS Negative (NEGATIVE); COCAINE Negative (NEGATIVE); OPIATES Negative (NEGATIVE)
[2019-03-08 21:35] LABS: AMPHETAMINE/METHAMPHETAMINE Positive (NEGATIVE)
[2019-03-09] MEDS: FUROSEMIDE 40 MG INJ IV ×2 (05:25→13:33)
[2019-03-09 06:39] LABS: ADD MAN DIFF? NO
[2019-03-09 06:43] LABS: WHITE BLOOD COUNT 6.8 10^3/ul (4.8-10.8)
[2019-03-09 06:43] LABS: BASOPHIL # 0.1 10^3/ul (0.0-0.1); BASOPHILS % 0.7 % (0.0-2.0); EOSINOPHILS # 0.3 10^3/ul (0.0-0.5); EOSINOPHILS % 3.7 % (0.0-7.0); HEMATOCRIT 46.7 % (42.0-52.0); HEMOGLOBIN 15.2 g/dl (14.0-18.0); LYMPHOCYTES # 1.3 10^3/ul (0.8-2.9); LYMPHOCYTES % 18.4 % (15.0-51.0); MEAN CORPUSCULAR HEMOGLOBIN 33.3 pg (29.0-33.0); MEAN CORPUSCULAR HGB CONC 32.5 g/dl (32.0-37.0); MEAN CORPUSCULAR VOLUME 102.4 fl (82.0-101.0); MEAN PLATELET VOLUME 9.8 fl (7.4-10.4); MONOCYTE # 0.8 10^3/ul (0.3-0.9); MONOCYTES % 11.6 % (0.0-11.0); NEUTROPHIL # 4.4 10^3/ul (1.6-7.5); NEUTROPHILS % 65.2 % (39.0-77.0); PLATELET COUNT 259 10^3/UL (140-415); RED BLOOD COUNT 4.56 10^6/ul (4.70-6.10); RED CELL DISTRIBUTION WIDTH 14.6 % (11.5-14.5)
[2019-03-09 07:00] LABS: HEMOGLOBIN A1C 5.5 % (0-5.9)
[2019-03-09 07:04] LABS: ALANINE AMINOTRANSFERASE 36 IU/L (13-69); ALKALINE PHOSPHATASE 92 IU/L (42-121); ANION GAP 9 (5-13); ASPARTATE AMINO TRANSFERASE 38 IU/L (15-46); BILIRUBIN,INDIRECT 0.6 mg/dl (0-1.1); BILIRUBIN,TOTAL 0.6 mg/dl (0.2-1.3); BLOOD UREA NITROGEN 21 mg/dl (7-20); CALCIUM 9.5 mg/dl (8.4-10.2); CARBON DIOXIDE 31 mmol/L (21-31); CHLORIDE 101 mmol/L (97-110); CREATININE 1.12 mg/dl (0.61-1.24); Estimated GFR > 60 mL/min (>60); GLUCOSE 100 mg/dl (70-220); MAGNESIUM 1.5 mg/dl (1.7-2.5); POTASSIUM 3.5 mmol/L (3.5-5.1); SODIUM 141 mmol/L (135-144); TOTAL PROTEIN 7.1 g/dl (6.1-8.1)
[2019-03-09 07:05] LABS: ALBUMIN/GLOBULIN RATIO 1.29; CHOL/HDL RATIO 3.1 RATIO; CHOLESTEROL 156 mg/dl (100-200); HDL CHOLESTEROL 50 mg/dl (28-63); LDL CHOLESTEROL,CALCULATED 94 mg/dl; TRIGLYCERIDES 59 mg/dl (0-149)
[2019-03-09] MEDS: ASPIRIN 81 MG TAB PO (09:56)
[2019-03-09] MEDS: BENAZEPRIL 20 MG TAB PO (09:56)
[2019-03-09] MEDS: ENOXAPARIN 40 MG/0.4 ML SYG SC (09:58)
[2019-03-09] MEDS: MAGNESIUM SULFATE 4 GM/100 ML 100 ML IVPB (12:00)
[2019-03-09] MEDS: POTASSIUM CHLORIDE 20 MEQ POWDER FOR ORAL SOLN PO (13:32)
== END 2019-03-09 15:09 | disposition home or self-care (01) | DRG 293 ==
LOC: E/R 00:37 → TEL 02:32
DX: I11.0 Hypertensive heart disease with heart failure (principal); I42.9 Cardiomyopathy, unspecified; I50.43 Acute on chronic combined systolic (congestive) and diastolic (congestive) heart failure; I34.0 Nonrheumatic mitral (valve) insufficiency; F15.10 Other stimulant abuse, uncomplicated; Z87.891 Personal history of nicotine dependence
CPT/HCPCS: 71045; 80053; 80061; 80307; 82550; 82553; 83036; 83735; 83880; 84443; 84484; 85025; 93005; 99285-25